=== PATIENT | female | born 1960 | race Two or more races ===

== ENCOUNTER 2017-06-07 06:00 | Outpatient (CLI) | payer OTHER ==
[~2017-06-07] VITALS: Ht 152.4 cm; Wt 74.4 kg
[2017-06-07] MEDS ORDERED: NEURONTIN300 MG PO (11:52)
[2017-06-07] MEDS ORDERED: MAXIMUM D310000 UNIT PO (11:53)
[2017-06-07] MEDS ORDERED: TIZANIDINE HCL4 MG PO (11:53)
[2017-06-07] MEDS ORDERED: LOTREL 5-40 MG1 EACH PO (11:53)
[2017-06-07] MEDS ORDERED: [UNRECOGNIZED DRUG - OTHER] (11:54)
== END 2017-06-07 06:05 | disposition home or self-care (01) ==
LOC: LAB 06:00 → SURH 06-14 07:00 → EDSTATUS 06-14 13:00
DX: Z01.810 Encounter for preprocedural cardiovascular examination (principal); Z01.812 Encounter for preprocedural laboratory examination; M54.5 Low back pain